=== PATIENT | female | born 1995 | race Two or more races ===

== ENCOUNTER 2018-09-20 22:03 | Inpatient (IN) | payer BC ==
[2018-09-20] MEDS ORDERED: PENICILLIN G-K 5 MILLION UNIT VIAL ONE (22:35)
[2018-09-20] MEDS ORDERED: RINGERS SOLUTION,LACTATED 1,000 ML IV PRN (22:37)
[2018-09-20] MEDS ORDERED: PENICILLIN G POTASSIUM 5,000,000 UNIT in DEXTROSE 5%-WATER 100 ML IV ONE (23:00)
[2018-09-20 23:08] LABS: APPEARANCE,URINE SLIGHTLY-CLOUDY; BILIRUBIN,URINE NEGATIVE (NEGATIVE); COLOR,URINE YELLOW; GLUCOSE, URINE NEGATIVE (NEGATIVE); KETONES,URINE NEGATIVE (NEGATIVE); LEUKOCYTE ESTERASE,URINE SMALL (NEGATIVE); NITRITE,URINE NEGATIVE (NEGATIVE); PROTEIN,URINE NEGATIVE (NEGATIVE); UROBILINOGEN,URINE NEGATIVE mg/dL (<2.0)
[2018-09-20 23:10] LABS: ABSOLUTE BASOPHILS # (AUTO) 0.1 10^3/uL (0.0-0.2); ABSOLUTE EOSINOPHILS # (AUTO) 0.1 10^3/uL (0.0-0.6); ABSOLUTE LYMPHOCYTES (AUTO) 1.9 10^3/uL (0.5-4.7); ABSOLUTE MONOCYTES (AUTO) 0.9 10^3/uL (0.1-1.4); ABSOLUTE NEUT (AUTO) 11.5 10^3/uL (1.7-8.2); BASOPHILS % (AUTO) 0.4 % (0-2); EOSINOPHILS % (AUTO) 0.4 % (0-6); HEMATOCRIT 33.8 % (36.0-47.0); HEMOGLOBIN 11.7 g/dL (12.0-15.5); LYMPHOCYTES % (AUTO) 13.3 % (13-45); MEAN CORPUSCULAR HEMOGLOBIN 32.1 pg (27.0-33.4); MEAN CORPUSCULAR HGB CONC 34.6 g/dL (32.0-36.0); MEAN CORPUSCULAR VOLUME 93 fl (80-97); MONOCYTES % (AUTO) 6.5 % (3-13); PLATELET COUNT 183 10^3/uL (150-450); RED BLOOD COUNT 3.64 10^6/uL (3.72-5.28); RED CELL DISTRIBUTION WIDTH 13.1 % (11.5-14.0); SEGMENTED NEUTROPHILS % (AUTO) 79.4 % (42-78); TOTAL CELLS COUNTED % (AUTO) 100 %; WHITE BLOOD COUNT 14.5 10^3/uL (4.0-10.5)
[2018-09-20 23:23] LABS: URINE AMPHETAMINES SCREEN NEGATIVE; URINE BARBITURATES SCREEN NEGATIVE; URINE BENZODIAZEPINES SCREEN NEGATIVE; URINE COCAINE SCREEN NEGATIVE; URINE MARIJUANA (THC) SCREEN NEGATIVE; URINE PHENCYCLIDINE SCREEN NEGATIVE
[2018-09-20 23:30] LABS: URINE METHADONE SCREEN NEGATIVE
[2018-09-20] MEDS ORDERED: OXYTOCIN/NORMAL SALINE 20 UNIT/1,000 ML RTUINJ ONE (23:53)
[2018-09-20] MEDS ORDERED: LIDOCAINE 1% INJ-PF (10 MG/ML) 30 ML SDV ONE (23:53)
[2018-09-20] MEDS ORDERED: OXYTOCIN 10 UNIT/ML VIAL ONE (23:53)
[2018-09-20] MEDS ORDERED: MISOPROSTOL 0.2 MG TABLET ONE (23:53)
[2018-09-21] MEDS ORDERED: EPHEDRINE SULFATE INJ 50 MG/1 ML AMPULE ONE (00:09)
[2018-09-21] MEDS ORDERED: FENTANYL/BUPIVACAINE/NS/PF 300 MCG/150 ML RTUINJ EPI ONE (00:09)
[2018-09-21] MEDS ORDERED: FENTANYL CITRATE INJ/PF 100 MCG/2 ML AMPUL ONE (00:09)
[2018-09-21] MEDS ORDERED: PHENYLEPHRINE HCL INJ/PF 10 MG/1 ML SDV ONE (00:09)
[2018-09-21] MEDS ORDERED: BUPIVACAINE HCL 0.25 % INJ/PF (2.5 MG/1 ML) 30 ML VIAL ONE (00:10)
[2018-09-21] MEDS ORDERED: PENICILLIN G-K 5 MILLION UNIT VIAL ONE (01:46)
--- NOTE | 2018-09-21 03:35 | Admission Physical ---
Datetime Report Generated by CPN: 09/21/2018 03:34 CURRENT ADMISSION Chief Complaint: Uterine Contractions Chief Complaint Other: painful contractions Indication for Induction: Not Applicable Admit Impression : Term, Intrauterine ; Active Labor Admit Plan: Admit to Unit; Initiate Labor Protocol ALLERGIES Medication Allergies: No Medication Allergies: No Known Allergies (09/20/2018) Latex: No Latex Allergies OBSTETRICAL HISTORY EDC: 09/20/2018 00:00 : 1 Para: 0 Gestational Diabetes: No Rh Sensitization: No Incompetent Cervix: No MARIBEL: No Infertility: No ART Treatment: No Uterine Anomaly: No IUGR: No Hx Previous C/S: No Macrosomia: No Hx Loss/Stillborn: No PIH: No Hx : No Placenta Previa/Abruption: No Depression/PP Depression: No PTL/PROM: No Post Hemorrhage: No Obstetrical History Comments: G1- current SEE RECORDS Alcohol: No Marijuana : No Cocaine: No Other Illicit Drugs: No Cigarettes: Never Smoker. 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 Surgery: No Heart Disease: No Hosp/Surgery: No Autoimmune Disorder: No Anesthetic Complications: No Kidney Disease: No Abnormal Pap Smear: No Neuro/Epilepsy: No Psychiatric Disorders: No Other Medical Diseases: No Hepatitis/Liver Disease: No Significant Family History: No Varicosities/Phlebitis: No Trauma/Violence : No Thyroid Dysfunction: No INFECTIOUS HISTORY Gonorrhea: No Genital Herpes: No Chlamydia: No Tuberculosis: No Syphilis: No Hepatitis: No HIV/AIDS Exposure: No Rash or Viral Illness: No HPV: No PHYSICAL EXAM General: Normal HEENT: Normal Neurologic: Normal Thyroid: Deferred Heart: Normal Lungs: Normal Breast: Deferred Back: Normal Abdomen: Deferred Genitourinary Exam: Normal Extremities: Normal DTRs: Normal Pelvic Type: Adequate Vital Signs: Reviewed; Within Normal Limits VAGINAL EXAM Dilatation: 6 Effacement: 90 Station: 0 MEMBRANES Membranes: Ruptured Amniotic Fluid Color: Clear FETUS A EGA: 40.1 Monitoring: External US FHR- Baseline: 140s Variability: Moderate 6-25bpm Accelerations: 15X15 Decelerations: None; Early FHR Category: Category I FHR Comments: Reactive Estimated Weight (gm): 3000 Presentation: Vertex Admit Comment: Uncomplicated , GBS positive-amniotomy performed after 2nd dose of antibiotics; labor progressing adequately PLANS FOR LABOR AND DELIVERY Labor and Delivery: None Pain Management: Epidural Feeding Preference: Breast Benefit of Breast Feed Discussed: Yes INFORMED CONSENT Signature: with User ID: [email or web address]
[2018-09-21] MEDS ORDERED: ACETAMINOPHEN WITH CODEINE #3 TABLET ONE (06:00)
[2018-09-21] MEDS ORDERED: BENZOCAINE/MENTHOL AEROSOL SPRAY 56 ML ONE (06:00)
[2018-09-21] MEDS ORDERED: ZOLPIDEM TARTRATE 5 MG TABLET PO PRN (06:35)
[2018-09-21] MEDS ORDERED: PROMETHAZINE HCL 25 MG SUPP.RECT PR PRN (06:35)
[2018-09-21] MEDS ORDERED: DIPHENHYDRAMINE HCL 25 MG CAPSULE PO PRN (06:35)
[2018-09-21] MEDS ORDERED: ACETAMINOPHEN 650 MG SUPP.RECT PR PRN (06:35)
[2018-09-21] MEDS ORDERED: ACETAMINOPHEN WITH CODEINE #3 TABLET PO PRN ×2 (06:35)
[2018-09-21] MEDS ORDERED: NA PHOS,M-B/NA PHOS,DI-BA (ADULT) 133 ML ENEMA PR PRN (06:35)
[2018-09-21] MEDS ORDERED: BENZOCAINE/MENTHOL AEROSOL SPRAY 56 ML TOP PRN (06:35)
[2018-09-21] MEDS ORDERED: OXYTOCIN/NORMAL SALINE 20 UNIT/1,000 ML RTUINJ IV PRN (06:35)
[2018-09-21] MEDS ORDERED: PROMETHAZINE HCL 25 MG TABLET PO PRN (06:35)
[2018-09-21] MEDS ORDERED: MAGNESIUM HYDROXIDE SUSP 30 ML UDCUP PO PRN (06:35)
[2018-09-21] MEDS ORDERED: GLYCERIN/WITCH HAZEL LEAF 1 EACH MED..WIPE TP PRN (06:35)
[2018-09-21] MEDS ORDERED: DIPH/PERTUSS(ACELL)/TETANUS VAC/PF 0.5 ML SYR (>=10YO) IM PRN (06:35)
[2018-09-21] MEDS ORDERED: CARBOPROST TROMETHAMINE INJ 250 MCG/1 ML AMPULE IM PRN (06:35)
[2018-09-21] MEDS ORDERED: PSEUDOEPHEDRINE HCL 30 MG TABLET PO PRN (06:35)
[2018-09-21] MEDS ORDERED: PROMETHAZINE HCL INJ 25 MG/1 ML VIAL IV PRN (06:35)
[2018-09-21] MEDS ORDERED: METHYLERGONOVINE MALEATE INJ/PF 0.2 MG/1 ML AMPULE IM PRN (06:35)
[2018-09-21] MEDS ORDERED: MEASLES,MUMPS&RUBELLA VACC/PF 0.5 ML VIAL SUBCUT PRN (06:35)
[2018-09-21] MEDS ORDERED: DIBUCAINE 1% OINTMENT 56 GM TP PRN (06:35)
[2018-09-21] MEDS ORDERED: AMPICILLIN SOD/SULBACTAM 3 GM VIAL IV ONE (06:37)
[2018-09-21] MEDS ORDERED: AMMONIA INHALANTS 10 AMPUL/BOX IH ONE (06:48)
--- NOTE | 2018-09-21 07:01 | Warning Signs in Babies ---
VOD Warning Signs Datetime Report Generated by [facility]: 09/21/2018 07:00 VOD#608 -Warning Signs in Babies: Viewed with Parent(s)/Family (09/21/2018 06:15:Nidia Hodge RN)
--- NOTE | 2018-09-21 07:06 | Delivery Summary ---
Del Sum A-C Datetime Report Generated by CPN: 09/21/2018 07:06 DELIVERY PERSONNEL DELIVERY PERSONNEL: [id number] Delivery Doctor:: Alicia Malik MD Anesthesiologist:: Madhuri Chau MD Labor and Delivery Nurse:: Nidia Hodge RN Nursery Nurse:: Jaquelin Hassan RN Survey Compiler/MANGLE CATCHER: Waleska Gil, ST MATERNAL INFORMATION Delivery Anesthesia: Epidural Medications After Delivery: Pitocin Drip 20 Units/1000ml NSS Estimated Blood Loss (ml): 375 Delivery QBL: 375 Maternal Complications: None Provider Comments: The patient tolerated the procedure well. LABOR SUMMARY EDC: 09/20/2018 00:00 No. Babies in Womb: 1 Attempted: No Labor Anesthesia: Epidural LABOR INFORMATION Reason for Induction: Not Applicable Onset of Labor: 09/20/2018 21:00 (Annotations: per pt. ) Complete Dilatation: 09/21/2018 04:34 Other Ripening Agents: n/a Oxytocin: N/A Group B Beta Strep: positive Antibiotics # of Doses: 2 Antibiotics Time of Last Dose: 0156 Name of Antibiotic Given: PCN Steroids Given: None Reason Steroids Not Administered: Not Applicable Other Reason Not Administered: Full term fetus at delivery MEMBRANES Membranes Rupture Method: Artificial Rupture of Membranes: 09/21/2018 03:25 Length of Rupture (hr): 1.48 Amniotic Fluid Color: Clear Amniotic Fluid Amount: Small Amniotic Fluid Odor: None STAGES OF LABOR Stage 1 hr: 7 Stage 1 min: 34 Stage 2 hr: 0 Stage 2 min: 20 Stage 3 hr: 0 Stage 3 min: 4 Total Time in Labor hr: 7 Total Time in Labor min: 58 VAGINAL DELIVERY Episiotomy: None Laceration Extension #1: Third Degree, IIIb (Greater than 50 percent ext anal sphincter thickness torn) Laceration Repair: Yes Laceration Repair Note: The sphincter was reapproximated at the posterior, inferior, superior and anterior aspects as to recreate the cylindrical effect of the rectal spincter. The rectal spincter was reapproximated with an 0 vicryl suture. After the rectal spincter was reapproximated, the small part of the anal verge that was disrupted was reapproximated with 3-0 vicryl. The remainder of the laceration was repaired with 3-0 vicryl in the usual fashion as a 2nd degree laceration. Rectal exam was completed and there were no sutures in the rectal mucosa. Clots were removed from the lower uterine segment. The patient was cleansed, pads were changed, bed was put back together and pt was allowed to agarwal with Sponge Count Correct: Yes Sharps Count Correct: Yes CSECTION DELIVERY Primary Indication: N/A Secondary Indication: N/A CSection Urgency: Non-Scheduled CSection Incidence: N/A Labor: N/A Elective: N/A CSection Incision: N/A BABY A INFORMATION Infant Delivery Date/Time: 09/21/2018 04:54 Method of Delivery: Vaginal Born in Route : No : N/A Forceps: N/A Vacuum Extraction: N/A Shoulder Dystocia : No PRESENTATION/POSITION BABY A Presentation: Cephalic Cephalic Presentation: Vertex Breech Presentation: N/A PLACENTA INFORMATION BABY A Placenta Delivery Time : 09/21/2018 04:58 Placenta Method of Delivery: Expressed Placenta Status: Delivered SCORES BABY A Heart Rate 1 min: >100 bpm Resp Effort 1 min: Good Cry Reflex Irritability 1 min: Cough or Sneeze or Pulls Away Muscle Tone 1 min: Active Motion Color 1 min: Blue/Pale Resuscitation Effort 1 min: Tactile Stimulation SCORE 1 MIN: 8 Heart Rate 5 min: >100 bpm Resp Effort 5 min: Good Cry Reflex Irritability 5 min: Cough or Sneeze or Pulls Away Muscle Tone 5 min: Active Motion Color 5 min: Body Keener, Extremities Blue Resuscitation Effort 5 min: N/A SCORE 5 MIN: 9 INFORMATION BABY A Gestational Age at Delivery: 40.1 Gestational Status: Full Term- 39- 40.6 Weeks Outcome : Liveborn Condition : Stable Infant Sex: Male IDENTIFICATION BABY A Infant Verification Date/Time: 09/21/2018 05:14 ID Band Number: [id number] Mother's Name Verified: Yes RN Verifying : K. Philippe, RN Additional Verifying Personnel: B. Ring, RN WEIGHT/LENGTH BABY A Birthweight (gm): 3010 Infant Weight (lb): 6 Infant Weight (oz): 10 Length (in): 19.00 Infant Length (cm): 48.26 CORD INFORMATION BABY A No. Cord Vessels: 3 Nuchal Cord : N/A Cord Blood Taken: Yes-For Eval (Mom's Blood Type - or O+) Infant Suction: None ASSESSMENT BABY A Complications: None Physical Findings at Delivery: Within Normal Limits Infant Respirations: Appears Normal Skin to Skin: Yes Insulator Apprentice/ALS Called : No Infant Care By: Jaquelin Hassan RN Transferred To: Remains with Mother BABY B INFORMATION : N/A SIGNATURES Signature: with User ID: [email or web address]
[2018-09-21] MEDS: DOCUSATE SODIUM 100 MG CAPSULE PO SCH ×2 (14:09→17:55)
[2018-09-21] MEDS: FAMOTIDINE 20 MG TABLET PO SCH (14:09)
[2018-09-21] MEDS: FERROUS SULFATE 325 MG TABLET PO SCH ×2 (14:09→17:55)
[2018-09-21] MEDS: PRENATAL VITAMIN W DHA CAPSULE PO SCH (14:09)
[2018-09-21] MEDS: SENNOSIDES/DOCUSATE 8.6-50 MG 1 EACH TABLET PO SCH (14:09)
[2018-09-21] MEDS: IBUPROFEN 800 MG TABLET PO SCH ×2 (17:46→21:24)
[2018-09-22] MEDS: FAMOTIDINE 20 MG TABLET PO SCH ×3 (01:26→21:07)
[2018-09-22] MEDS: IBUPROFEN 800 MG TABLET PO SCH ×3 (05:05→21:07)
[2018-09-22] MEDS: PENICILLIN G POTASSIUM 2,500,000 UNIT in DEXTROSE 5%-WATER 50 ML IV SCH (07:28)
[2018-09-22 07:40] LABS: HEMATOCRIT 30.4 % (36.0-47.0); HEMOGLOBIN 10.5 g/dL (12.0-15.5); MEAN CORPUSCULAR HEMOGLOBIN 32.4 pg (27.0-33.4); MEAN CORPUSCULAR HGB CONC 34.5 g/dL (32.0-36.0); MEAN CORPUSCULAR VOLUME 94 fl (80-97); PLATELET COUNT 159 10^3/uL (150-450); RED BLOOD COUNT 3.24 10^6/uL (3.72-5.28); RED CELL DISTRIBUTION WIDTH 13.3 % (11.5-14.0); WHITE BLOOD COUNT 14.8 10^3/uL (4.0-10.5)
[2018-09-22] MEDS: DOCUSATE SODIUM 100 MG CAPSULE PO SCH ×2 (10:08→17:18)
[2018-09-22] MEDS: PRENATAL VITAMIN W DHA CAPSULE PO SCH (10:08)
[2018-09-22] MEDS: FERROUS SULFATE 325 MG TABLET PO SCH ×2 (10:08→17:18)
[2018-09-22] MEDS: SENNOSIDES/DOCUSATE 8.6-50 MG 1 EACH TABLET PO SCH (10:08)
--- NOTE | 2018-09-22 10:36 | PDOC PROGRESS REPORT ---
Subjective-OB Progress Note for:: 09/22/18 Subjective: 23yo G1 now P1 s/p ppd1. without difficulty, just had hardy removed at 0730 has not voided on her own yet. Denies any concerns at this time. Physical Exam (OB) Vital Signs: Temp Pulse Resp BP Pulse Ox 97.8 F 63 16 94/65 L 99 09/22/18 07:49 09/22/18 07:49 09/22/18 07:49 09/22/18 07:49 09/22/18 07:49 Intake & Output 09/21/18 09/22/18 09/23/18 06:59 06:59 06:59 Output Total 3100 150 Balance -3100 -150 Weight 66.9 kg - General General Appearance: Appears well In distress: None - PIH/Pre-Eclampsia Clonus: Negative Headache: Absent Epigastric Pain: No Visual Changes: No - Episiotomy/Laceration Site Condition: Well Approximated - Lochia Lochia Amount: Scant < 10 ml Lochia Color: Rubra/Red - Abdomen Description: Soft Hernia Present: No Fundal Description: Firm, Midline Fundal Height: u/u - u/2 - Respiratory Respiratory Status: No respiratory distress - Extremities Upper extremity: Normal inspection Lower extremities: Normal inspection - Neurological Cognition: Normal Orientation: AAOx4 - Psychological Associated symptoms: Normal affect, Normal mood Objective-Diagnostic Laboratory: 09/22/18 07:27 09/22/18 07:27 WBC 14.8 H RBC 3.24 L Hgb 10.5 L Hct 30.4 L MCV 94 MCH 32.4 MCHC 34.5 RDW 13.3 Plt Count 159 Assessment and Plan(PN) - Assessment and Plan (1) Anemia due to blood loss, acute Is this a current diagnosis for this admission?: Yes Plan: increase dietary iron and FeSO4 BID (2) Vaginal delivery Is this a current diagnosis for this admission?: Yes Plan: Routine pp care (3) Third degree laceration of perineum, type 3b Is this a current diagnosis for this admission?: Yes Plan: continue to monitor for s/s of infection, will need follow up at office in 1 week - Time Spent with Patient Time with patient: Less than 15 minutes Medications reviewed and adjusted accordingly: Yes - Disposition Anticipated Discharge: Home Within: within 24 hours
[2018-09-23] MEDS: IBUPROFEN 800 MG TABLET PO SCH (05:22)
--- NOTE | 2018-09-23 09:18 | PDOC DISCHARGE SUMMARY ---
Final Diagnosis Discharge Date: 09/23/18 - Final Diagnosis (1) Third degree laceration of perineum, type 3b Is this a current diagnosis for this admission?: Yes (2) Vaginal delivery Is this a current diagnosis for this admission?: Yes Discharge Data - Discharge Medication Prescriptions: Acetaminophen with Codeine [Tylenol #3 Tablet] 1 each PO Q4HP PRN #20 tablet PRN Reason: Docusate Sodium [Colace 100 mg Capsule] 100 mg PO BID #60 capsule Ibuprofen [Motrin 800 mg Tablet] 800 mg PO Q8 #60 tablet Home Medications: Pnv No.95/Ferrous Fum/Folic AC [ Multivitamin Tablet] 1 tab PO DAILY 09/20/18 Acetaminophen with Codeine [Tylenol #3 Tablet] 1 each PO Q4HP PRN #20 tablet 09/23/18 Docusate Sodium [Colace 100 mg Capsule] 100 mg PO BID #60 capsule 09/23/18 Ibuprofen [Motrin 800 mg Tablet] 800 mg PO Q8 #60 tablet 09/23/18 Procedures: NST Intrapartum Procedure(s): Spontaneous Vaginal Delivery Complication(s): Laceration-Perineal Laceration-Degree: 3rd - Diagnosis Test Laboratory: Temp Pulse Resp BP Pulse Ox 97.3 F 62 18 104/64 100 09/23/18 07:03 09/23/18 07:03 09/23/18 07:03 09/23/18 07:03 09/23/18 07:03 09/20/18 09/20/18 09/22/18 22:11 22:52 07:27 RBC 3.64 L 3.24 L Hgb 11.7 L 10.5 L Hct 33.8 L 30.4 L Urine Opiates Screen NEGATIVE - Discharge information/Instructions Discharge Activity: Balance Activity w/Rest, Pelvic Rest Discharge Diet: Regular Disposition: HOME, SELF-CARE Follow up with: [facility] in: 1, Weeks - 1w f/u for laceration check
[2018-09-23 10:48] VITALS: BP 94/65
[2018-09-23] MEDS: SENNOSIDES/DOCUSATE 8.6-50 MG 1 EACH TABLET PO SCH (11:12)
[2018-09-23] MEDS: PRENATAL VITAMIN W DHA CAPSULE PO SCH (11:12)
[2018-09-23] MEDS: DOCUSATE SODIUM 100 MG CAPSULE PO SCH (11:12)
[2018-09-23] MEDS: FERROUS SULFATE 325 MG TABLET PO SCH (11:12)
[2018-09-23] MEDS: FAMOTIDINE 20 MG TABLET PO SCH (11:13)
== END 2018-09-23 13:15 | disposition home or self-care (01) | DRG 768 ==
LOC: LC 22:03 → LR 22:42 → 2S 09-21 10:30
PROVIDERS: ADMIT Obstetrics & Gynecology; ATTEND Obstetrics & Gynecology
PROC: 10E0XZZ Delivery of Products of Conception, External Approach (ICD-10-PCS; principal; 2018-09-21)
PROC: 0DQR0ZZ Repair Anal Sphincter, Open Approach (ICD-10-PCS; 2018-09-21)
DX: O70.22 Third degree perineal laceration during delivery, IIIb (principal); D62 Acute posthemorrhagic anemia; O99.02 Anemia complicating childbirth; O99.824 Streptococcus B carrier state complicating childbirth; Z37.0 Single live birth
CPT/HCPCS: 36415; 80307; 81005; 85025; 85027; 86592; 86850; 86900; 86901; 94760; J2370; J2540; J2590; J3010; J3490; J7060